=== PATIENT | male | born 1970 | race African-American/Black ===

== ENCOUNTER 2021-10-21 01:06 | Day surgery (SDC) | payer BC, SELFPAY ==
[2021-10-11 15:12] VITALS: BMI 34.4
[2021-10-21 09:07] VITALS: BP 132/79; PULSE 73; RESP 16; TEMP 35.7; O2SAT 100; BMI 32.3
[2021-10-21] MEDS: LACTATED RINGERS 1,000 ML 150 ML IV CONT (09:39)
--- NOTE | 2021-10-21 09:39 | WPDGICN ---
Assessment and Plan Assessment and plan (1) Encounter for screening colonoscopy: Code(s): Z12.11 - Encounter for screening for malignant neoplasm of colon Status: Acute Assessment and Plan: Patient presents for a screening colonoscopy. He appears to be at average risk for colon polyps. Further recommendations will be given after endoscopy. GI Consult Note Consult date/time: 10/21/21 09:39 HPI: Varinder Nobles is a 51 year old male Presents for screening colonoscopy. Patient reports that his current weight appetite and bowel movements are normal. Patient denies abdominal pain. He has had no bleeding. Family history is noncontributory. Review of Systems Review of Systems: All systems reviewed & are unremarkable except as noted in HPI and below PMFSH Social History Social History Smoking status: Never smoker Alcohol intake: current Drinks per week: 2 Substance use: never Substance use type: does not use Living arrangements: with family Spiritual care concerns: No Meds Home Medications and Allergies Home Medications Medication Instructions Recorded Confirmed Type Adult Multivitamin with Iron 1 tab-cap PO DAILY 10/11/21 10/21/21 History albuterol sulfate 2 inh INHALATION PRN PRN 10/11/21 10/21/21 History fluticasone propion-salmeterol 1 inh INHALATION BID 10/11/21 10/21/21 History [Advair Diskus] Allergies Allergy/AdvReac Type Severity Reaction Status Date / Time Penicillins Allergy Unknown Unknown Verified 10/21/21 09:20 Vital Signs Vital Signs - 24 hr 10/21/21 09:07 Temperature 96.2 F L Pulse Rate 73 Respiratory Rate 16 Blood Pressure 132/79 Pulse Oximetry 100 Exam Narrative: Physical exam reveals patient be alert. Vital signs stable. HEENT exam is unremarkable. Patient is anicteric. Lungs are clear to auscultation and percussion. Heart is with out murmur or extra sounds. Abdominal exam bowel sounds are present soft nontender with no hepatosplenomegaly. Digital external rectal exam is normal.
--- NOTE | 2021-10-21 09:46 | WPDANESEPPF ---
Anes - Initial Pre Proc Eval Procedure: Operation Date: 10/21/21 10:00 Proposed Procedures p Screening Colonoscopy - Tommy Torres MD Date/Time: 10/21/21 09:46 Surgeon: Tommy Torres MD Pre Op Diagnosis: neoplasm screening Patient Data Age: 51 Gender: M Height: 1.83 m Weight: 108.1 kg Last Vital Signs Temp 96.2 F L 10/21/21 09:07 Pulse 73 10/21/21 09:07 Resp 16 10/21/21 09:07 BP 132/79 10/21/21 09:07 Pulse Ox 100 10/21/21 09:07 Allergies Allergy/AdvReac Type Severity Reaction Status Date / Time Penicillins Allergy Unknown Unknown Verified 10/21/21 09:20 Home Medications Medication Instructions Recorded Confirmed Type Adult Multivitamin with Iron 1 tab-cap PO DAILY 10/11/21 10/21/21 History albuterol sulfate 2 inh INHALATION PRN PRN 10/11/21 10/21/21 History fluticasone propion-salmeterol 1 inh INHALATION BID 10/11/21 10/21/21 History [Advair Diskus] Patient hx anesthesia problems: none Family hx anesthesia problems: none Results Review: All pre-operative results and documents have been reviewed as part of the pre-operative evaluation. [facility] Past Medical History Medical History (Updated 10/21/21 @ 09:41 by Shine Lomax MD) Asthma ZANDER (obstructive sleep apnea) Social History Social History Smoking status: Never smoker Alcohol intake: current Drinks per week: 2 Substance use: never Substance use type: does not use Living arrangements: with family Spiritual care concerns: No Anes - Eval Final PreProcedure Day of Procedure 10/21/21 09:46 Patient weight: obese Heart: regular rate and rhythm Lungs: clear to auscultation Airway: Mallampati scale class II Neurological: alert and oriented Last oral intake: >/= 8 hours ASA classification: II Emergent: no Anesthetic plan: proceed Anesthesia type and monitoring: general GIVS and standard monitoring Results Review: All pre-operative results and documents have been reviewed as part of the pre-operative evaluation. Informed Consent: The patient's anesthetic plan and its attendant risks and benefits were discussed with the patient/family/POA. Questions were solicited and answers provided to the satisfaction of the patient/family/POA.
[2021-10-21 10:49] VITALS: BP 100/57; PULSE 62; RESP 15; O2SAT 100
[2021-10-21 10:59] VITALS: BP 102/57; PULSE 68; RESP 24; O2SAT 100
[2021-10-21 11:09] VITALS: BP 110/71; PULSE 66; RESP 22; O2SAT 100
== END 2021-10-21 11:15 | disposition home or self-care (01) ==
PROVIDERS: PCP Family Medicine; Visit Provider Internal Medicine Gastroenterology
PROC: 0DJD8ZZ Inspection of Lower Intestinal Tract, Via Natural or Artificial Opening Endoscopic (ICD-10-PCS; CPT 45378; principal; 2021-10-21 10:00)
DX: Z12.11 Encounter for screening for malignant neoplasm of colon (principal); K64.8 Other hemorrhoids; K57.30 Diverticulosis of large intestine without perforation or abscess without bleeding; J45.909 Unspecified asthma, uncomplicated; G47.33 Obstructive sleep apnea (adult) (pediatric); Z79.51 Long term (current) use of inhaled steroids; E66.9 Obesity, unspecified; Z68.32 Body mass index [BMI] 32.0-32.9, adult
CPT/HCPCS: 45378; J2704; J7120